=== PATIENT | male | born 1995 | race Caucasian/White ===

== ENCOUNTER 2019-02-13 00:43 | Emergency (ER) | payer BC, OTHER ==
[~2019-02-13] VITALS: Ht 175.3 cm; Wt 73.6 kg
[2019-02-13 00:49] VITALS: Ht 175.3 cm; Wt 73.6 kg
--- NOTE | 2019-02-13 03:49 | ERD ---
ER Documentation Chief Complaint Chief Complaint LLQ PAIN X'S 1 HOUR HPI 23-year-old male, presents the emergency department, complaining of acute onset of left lower quadrant pain. No fever, no chills, no diarrhea or constipation, the pain is colicky, 8/10. ROS All systems reviewed and are negative except as per history of present illness. Physical Exam Vitals Vital Signs Date Temp Pulse Resp B/P (MAP) Pulse Ox O2 O2 Flow FiO2 Time Delivery Rate 02/13/19 97.2 84 20 135/70 98 00:49 (91) Physical Exam Const: No acute distress Head: Atraumatic Eyes: Normal Conjunctiva ENT: Normal External Ears, Nose and Mouth. Neck: Full range of motion. No meningismus. Resp: Clear to auscultation bilaterally Cardio: Regular rate and rhythm, no murmurs Abd: Soft, non tender, non distended. Normal bowel sounds Skin: No petechiae or rashes Back: No midline or flank tenderness Ext: No cyanosis, or edema Neur: Awake and alert Psych: Normal Mood and Affect Result Diagram: 02/13/199 02/13/199 Results 24 hrs Laboratory Tests Test 02/13/19 04:29 02/13/19 04:31 White Blood Count 14.2 10^3/ul Red Blood Count 5.52 10^6/ul Hemoglobin 15.9 g/dl Hematocrit 48.0 % Mean Corpuscular Volume 87.0 fl Mean Corpuscular Hemoglobin 28.8 pg Mean Corpuscular Hemoglobin Concent 33.1 g/dl Red Cell Distribution Width 12.4 % Platelet Count 538 10^3/UL Mean Platelet Volume 8.2 fl Immature Granulocytes % 1.600 % Neutrophils % 63.3 % Lymphocytes % 28.3 % Monocytes % 5.4 % Eosinophils % 0.8 % Basophils % 0.6 % Nucleated Red Blood Cells % 0.0 /100WBC Immature Granulocytes # 0.230 10^3/ul Neutrophils # 9.0 10^3/ul Lymphocytes # 4.0 10^3/ul Monocytes # 0.8 10^3/ul Eosinophils # 0.1 10^3/ul Basophils # 0.1 10^3/ul Nucleated Red Blood Cells # 0.0 10^3/ul Sodium Level 144 mmol/L Potassium Level 3.8 mmol/L Chloride Level 104 mmol/L Carbon Dioxide Level 28 mmol/L Anion Gap 12 Blood Urea Nitrogen 9 mg/dl Creatinine 0.82 mg/dl Est Glomerular Filtrat Rate mL/min > 60 mL/min Glucose Level 103 mg/dl Calcium Level 9.9 mg/dl Total Bilirubin 0.4 mg/dl Direct Bilirubin 0.00 mg/dl Indirect Bilirubin 0.4 mg/dl Aspartate Amino Transf (AST/SGOT) 37 IU/L Alanine Aminotransferase (ALT/SGPT) 41 IU/L Alkaline Phosphatase 97 IU/L Total Protein 8.9 g/dl Albumin 4.9 g/dl Globulin 4.00 g/dl Albumin/Globulin Ratio 1.22 Lipase 58 U/L Bedside Urine pH (LAB) 7.0 Bedside Urine Protein (LAB) Negative Bedside Urine Glucose (UA) Negative Bedside Urine Ketones (LAB) Negative Bedside Urine Blood Trace-lysed Bedside Urine Nitrite (LAB) Negative Bedside Urine Leukocyte Esterase (L Negative Departure Diagnosis: Primary Impression: Gastroenteritis Condition: Stable Additional Instructions: Thank you very much for allowing us to participate in your care. Your health and safety is our top priority at [facility]. Call your primary care doctor TOMORROW for an appointment during the next 2-4 days and bring all the information and medications prescribed. Have prescriptions filled and follow precisely the directions on the label. If the symptoms get worse and your provider is unavailable, return to the Emergency Department immediately. OSMANI MONTANEZ MD Feb 13, 2019 03:49
[2019-02-13] MEDS ORDERED: IBUP-1561 PO (05:35)
[2019-02-13] MEDS ORDERED: CIPR-193 PO (05:35)
[2019-02-13] MEDS ORDERED: RANI150T35 PO (05:35)
[2019-02-13 05:47] VITALS: BP 122/72; PULSE 70; RESP 18
== END 2019-02-13 05:49 | disposition home or self-care (01) ==
LOC: FTE 00:43
DX: K52.9 Noninfective gastroenteritis and colitis, unspecified (principal)
CPT/HCPCS: 80053; 81003; 83690; 85025; 99283